=== PATIENT | male | born 1985 ===

== ENCOUNTER 2022-02-02 19:01 | Emergency (ER) | payer OTHER ==
[~2022-02-02] VITALS: Ht 175.3 cm; Wt 79.5 kg
[2022-02-02] MEDS ORDERED: MIRT-89 PO (19:44)
[2022-02-02] MEDS ORDERED: HYDR-4808 PO (19:44)
[2022-02-02] MEDS ORDERED: DIPH25CA85 PO (19:44)
[2022-02-02 23:07] VITALS: BP 140/79
[2022-02-03] MEDS ORDERED: HALOPERIDOL 5 MG TABLET PO ONE
[2022-02-03] MEDS ORDERED: LORazepam 2 MG TABLET PO ONE (00:15)
[2022-02-03 01:26] LABS: COVID AG,FIA SOURCE NASOPHARYNGEAL
== END 2022-02-03 02:46 | disposition home or self-care (01) ==
LOC: EMS 19:03
DX: F20.9 Schizophrenia, unspecified (principal); Z20.822 Contact with and (suspected) exposure to COVID-19
CPT/HCPCS: 99283